=== PATIENT | male | born 1965 | race American Indian/Alaskan Native ===

== ENCOUNTER 2020-11-23 09:53 | Emergency (ER) | payer MEDICAID ==
[2020-11-23 10:28] VITALS: BP 179/127
--- NOTE | 2020-11-23 10:44 | Event Note ---
ED Screening Note Date of service: 11/23/20 Time: 10:40 ED Screening Note: This initial assessment/diagnostic orders/clinical plan/treatment(s) is/are subject to change based on patients health status, clinical progression and re- assessment by fellow clinical providers in the ED. Further treatment and workup at subsequent clinical providers discretion. Patient/guardian urged not to elope from the ED as their condition may be serious if not clinically assessed and managed. 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 He denies chest pain and shortness of breath. Patient does not know the name of medications he usually takes for high blood pressure. He is awake alert ambulatory with steady gait
[2020-11-23 11:14] LABS: Hematocrit 39.5 % (35.5-45.6); Hemoglobin 14.1 gm/dl (11.8-15.2); Mean Corpuscular HGB Conc 36 % (32-34); Mean Corpuscular Volume 93 fl (84-94); Platelet Count 264 K/mm3 (140-440); Red Blood Count 4.24 M/mm3 (3.65-5.03); Red Cell Distribution Width 13.3 % (13.2-15.2)
[2020-11-23 11:36] LABS: BUN/Creatinine Ratio 11; Blood Urea Nitrogen 10 mg/dL (9-20); Calcium 8.8 mg/dL (8.4-10.2); Hemolysis Index 23
--- NOTE | 2020-11-26 10:11 | Electrocardiograph Report ---
[facility] Test Date: 2020-11-23 Test Time: 10:30:07 Pat Name: EDNA WILEY Department: Room: Gender: M Medical Housekeeper: PARVIN : 1965 Requested By: HUMA VALADEZ Order Number: [id number] Reading MD: Marc Kay Measurements Intervals [place] Rate: 79 P: 60 MN: 173 QRS: 89 QRSD: 124 T: 102 QT: 468 QTc: 538 Interpretive Statements Sinus rhythm Atrial premature complex LAE, consider biatrial enlargement Left ventricular hypertrophy ST elevation secondary to LVH Abnormal T, consider ischemia, lateral leads No previous ECG available for comparison Electronically Signed On 11-26-2020 10:11:33 EDT by Marc Kay
== END 2020-11-23 11:15 | disposition left against medical advice (07) ==
LOC: ED 09:53
DX: R03.0 Elevated blood-pressure reading, without diagnosis of hypertension (principal); Z53.21 Procedure and treatment not carried out due to patient leaving prior to being seen by health care provider
CPT/HCPCS: 36415; 80048; 84484; 85027; 93005